=== PATIENT | male | born 1990 | race Caucasian/White ===

== ENCOUNTER 2017-06-11 05:22 | Emergency (ER) | payer SELFPAY ==
[2017-06-11] MEDS ORDERED: NORMAL SALINE 1000 ML 1,000 ML IV ONE ×3 (05:28→05:59)
[2017-06-11] MEDS ORDERED: ONDANSETRON HCL INJ/PF 4 MG/2 ML SDV IV ONE (05:37)
--- NOTE | 2017-06-11 05:40 | ER Document Report ---
ED General - General TRAVEL OUTSIDE OF THE [place] IN LAST 30 DAYS: No <PATEL ZAVALA - Last Filed: 06/11/17 07:50> <STEPHANIE JEAN-BAPTISTE - Last Filed: 06/11/17 08:53> - General Chief Complaint: High Blood Sugar Stated Complaint: BLOOD SUGAR PROBLEMS Time Seen by Provider: 06/11/17 05:29 Notes: Patient is a 27-year-old male type I diabetic that comes emergency department for chief complaint of elevated blood sugar readings and vomiting. He started vomiting 3 days ago. He has an insulin pump, he states he usually does really well, he states he still thinks his insulin pump is working but he has not checked. He denies fever, shortness of breath, he denies any specific abdominal pain, denies specific headache. Only other past medical history is asthma. (PAETL ZAVALA) - Related Data Allergies/Adverse Reactions: No Known Allergies Allergy (Verified 06/11/17 05:26) Past Medical History - General Information source: Patient - Social History Smoking Status: Never Smoker Frequency of alcohol use: None Drug Abuse: None Lives with: Family Family History: Reviewed & Not Pertinent Patient has suicidal ideation: No Patient has homicidal ideation: No Pulmonary Medical History: Reports: Hx Asthma Endocrine Medical History: Reports: Hx Diabetes Mellitus Type 1 Renal/ Medical History: Denies: Hx Peritoneal Dialysis Surgical Hx: Negative - Immunizations Immunizations up to date: Yes Hx Diphtheria, Pertussis, Tetanus Vaccination: Yes <PATEL ZAVALA - Last Filed: 06/11/17 07:50> Review of Systems - Review of Systems Constitutional: See HPI EENT: No symptoms reported Cardiovascular: No symptoms reported Respiratory: No symptoms reported Gastrointestinal: See HPI Genitourinary: No symptoms reported Male Genitourinary: No symptoms reported Musculoskeletal: No symptoms reported Skin: No symptoms reported Hematologic/Lymphatic: No symptoms reported Neurological/Psychological: No symptoms reported <PATEL ZAVALA - Last Filed: 06/11/17 07:50> Physical Exam - Vital signs Interpretation: Normal - General General appearance: Anxious In distress: Severe - HEENT Head: Normocephalic, Atraumatic Eyes: Normal Extraocular movements intact: Yes Eyelashes: Normal Pupils: PERRL Mouth/Lips: Normal Mucous membranes: Dry Pharynx: Normal Neck: Normal - Respiratory Respiratory status: No respiratory distress, Tachypnea Breath sounds: Normal Chest palpation: Normal - Cardiovascular Rhythm: Regular, Tachycardia Heart sounds: Normal auscultation, S1 appreciated, S2 appreciated Murmur: No - Abdominal Inspection: Normal Distension: No distension Bowel sounds: Normal Tenderness: Nontender. No: Tender, Guarding Organomegaly: No organomegaly - Back Back: Normal, Nontender - Extremities General upper extremity: Normal inspection, Nontender, Normal color, Normal ROM , Normal temperature General lower extremity: Normal inspection, Nontender, Normal color, Normal ROM , Normal temperature, Normal weight bearing. No: Erin's sign - Neurological Neuro grossly intact: Yes Cognition: Normal Orientation: AAOx4 [place] Coma Scale Eye Opening: Spontaneous [place] Coma Scale Verbal: Oriented [place] Coma Scale Motor: Obeys Commands [place] Coma Scale Total: 15 Speech: Normal Motor strength normal: LUE, RUE, LLE, RLE Sensory: Normal - Psychological Associated symptoms: Anxious - Skin Skin Temperature: Warm Skin Moisture: Dry Skin Color: Pale <PATEL ZAVALA - Last Filed: 06/11/17 07:50> - Vital signs Vitals: Temp Pulse Resp BP Pulse Ox 99.1 F 130 H 22 H 106/47 L 100 06/11/17 05:26 06/11/17 05:26 06/11/17 05:26 06/11/17 05:26 06/11/17 05:26 Course - Laboratory Result Diagrams: 06/11/17 05:42 06/11/17 05:42 <PATEL ZAVALA - Last Filed: 06/11/17 07:50> - Laboratory Result Diagrams: 06/11/17 05:42 06/11/17 07:47 <STEPHANIE JEAN-BAPTISTE - Last Filed: 06/11/17 08:53> - Re-evaluation Re-evalutation: 06/11/17 On initial evaluation patient is very ill-appearing, Kussmaul respirations, tachycardic, pale. 2 large-bore IVs immediately started. Patient found to be hypotensive. Started 2 normal saline boluses. Surprisingly he is not confused. He is critically ill at this time. EKG showing tachycardia with peaked T waves. Initial blood glucose reading of high. Beginning insulin drip. Giving calcium gluconate. Preparing bicarbonate drip for suspected severe acidosis. Reported to Dr. Aldana. 06/11/17 05:55 Blood pressure improving, heart rate improving, will continue to closely monitor. Patient in acute renal failure with potassium of 8.1. Creatinine of 3.42, never had a history of renal failure in the past. Spoke with Dr. Puga, hospitalist, concerned because of no nephrology coverage at this facility, inability to do dialysis this weekend, and no current ICU beds available. Recommends transfer. Discussed with Dr. Jean-Baptiste. He recommends albuterol in addition to other treatments to reduce potassium, he has placed repeat lab orders and chest x-ray. Blood pressure continues to improve. Patient's heart rate is improving. His coloration is improving. I placed a central line because of patient's critical status and to accommodate bicarbonate drip along with insulin, treatments, fluids. Dr. Jean-Baptiste evaluated patient at bedside. Family requests [place] for potential transfer. 06/11/17 07:10 Called placed to [facility]. 06/11/17 07:20 Spoke with [facility], they will accept the patient, accepting physician is Dr. Trammell. They request patient be taken by air. Patient and family member in agreement with this. 06/11/17 07:45 Patient reevaluated at bedside. Blood pressure still improving, he is still significantly tachycardic and pale but he is still mentating normally. T waves improving on EKG. Room assignment has been obtained, pending transport team. ( PATEL ZAVALA) 06/11/17 08:52 Patient's repeat laboratory studies do show improvement pH is now greater than 7 potassium is now 5.8 EKG shows improvement in T-wave I will decrease the patient's insulin drip to a rate of 0.1 U/kg continue with fluids currently transport is here to take the patient. Patient has stabilized and is currently stable for transport. (STEPHANIE JEAN-BAPTISTE) - Vital Signs Vital signs: Temp Pulse Resp BP Pulse Ox 99.1 F 130 H 23 H 111/59 L 100 06/11/17 05:26 06/11/17 05:26 06/11/17 08:31 06/11/17 08:31 06/11/17 08:31 - Laboratory Laboratory results interpreted by tx: 06/11/17 06/11/17 06/11/17 05:42 05:42 05:42 WBC 30.9 H* Hgb 17.5 H Hct 56.0 H MCV 104 H MCHC 31.2 L Seg Neuts % (Manual) 90 H Band Neutrophils % 1 L Lymphocytes % (Manual) 3 L Abs Neuts (Manual) 28.1 H Abs Monocytes (Manual) 1.5 H Abs Basophils (Manual) 0.3 H VBG pH 6.89 L* VBG pCO2 23.7 L VBG HCO3 4.4 L Sodium 127.4 L Potassium 8.1 H* Chloride 84 L Carbon Dioxide < 5 L* BUN 51 H Creatinine 3.42 H Est GFR ( Amer) 26 L Est GFR (Non-Af Amer) 22 L Glucose 1133 H* Magnesium Direct Bilirubin 0.6 H Alkaline Phosphatase 160 H Urine Protein Urine Glucose (UA) Urine Ketones Urine Blood 06/11/17 06/11/17 06/11/17 07:05 07:47 07:47 WBC Hgb Hct MCV MCHC Seg Neuts % (Manual) Band Neutrophils % Lymphocytes % (Manual) Abs Neuts (Manual) Abs Monocytes (Manual) Abs Basophils (Manual) VBG pH 7.04 L* VBG pCO2 18.1 L* VBG HCO3 4.8 L Sodium 134.3 L Potassium 5.8 H D Chloride Carbon Dioxide < 5 L* BUN 50 H Creatinine 2.48 H Est GFR ( Amer) 38 L Est GFR (Non-Af Amer) 31 L Glucose 766 H* Magnesium 2.7 H Direct Bilirubin Alkaline Phosphatase Urine Protein 30 H Urine Glucose (UA) >=500 H Urine Ketones 20 H Urine Blood SMALL H Procedures - Central Line Left Femoral Consent obtained: Yes Central line pre-insertion: Sterile PPE donned, Chloraprep applied Central line lumen type: Triple Anesthetic type: 1% Lidocaine mL's of anesthesia: 3 Ultrasound guided: Yes Line secured with sutures: Yes Central line post-insertion: Blood return from lumens, Biopatch applied, Sutured , Sterile dressing applied Number of attempts: 1 Complications: No <PATEL ZAVALA - Last Filed: 06/11/17 07:50> Critical Care Note - Critical Care Note Total time excluding time spent on procedures (mins): 60 - diabetic ketoacidosis , hyperkalemia, acute renal failure <PATEL ZAVALA - Last Filed: 06/11/17 07:50> <STEPHANIE JEAN-BAPTISTE - Last Filed: 06/11/17 08:53> - Critical Care Note Comments: Please allow 60 minutes of critical care time not including any procedures for treatment of critically ill patient with diabetic ketoacidosis, acute renal failure, hyperkalemia, treatments including insulin drip, IV fluids, bicarbonate bolus and drip, calcium carbonate, albuterol, multiple re- evaluations, consultation with hospitalist, discussion with family members, transfer to tertiary care center. (PATEL ZAVALA) Discharge <PATEL ZAVALA - Last Filed: 06/11/17 07:50> <STEPHANIE JEAN-BAPTISTE - Last Filed: 06/11/17 08:53> - Discharge Clinical Impression: Hyperkalemia, Hyponatremia Diabetic ketoacidosis Qualifiers: Diabetes mellitus type: type 1 Diabetes mellitus complication detail: without coma Qualified Code(s): E10.10 - Type 1 diabetes mellitus with ketoacidosis without coma Acute renal failure Qualifiers: Acute renal failure type: unspecified Qualified Code(s): N17.9 - Acute kidney failure, unspecified Leukocytosis Qualifiers: Leukocytosis type: unspecified Qualified Code(s): D72.829 - Elevated white blood cell count, unspecified Vomiting Qualifiers: Vomiting type: unspecified Vomiting Intractability: non-intractable Nausea presence: with nausea Qualified Code(s): R11.2 - Nausea with vomiting, unspecified Condition: Critical Disposition: [facility]
[2017-06-11] MEDS ORDERED: NORMAL SALINE 100 ML with INSULIN REGULAR, HUMAN 100 UNIT IV PRN ×2 (05:47)
[2017-06-11] MEDS ORDERED: SODIUM BICARBONATE 8.4% INJ 50 MEQ/50 ML DISP.SYRIN IV ONE (06:00)
[2017-06-11] MEDS ORDERED: DEXTROSE 5%-WATER 1000 ML 1,000 ML with SODIUM BICARBONATE 150 MEQ IV PRN ×2 (06:01)
[2017-06-11] MEDS ORDERED: INSULIN REG, HUMAN 100 UNIT/ML 3 ML VIAL (PYX) ONE (06:01)
[2017-06-11 06:03] LABS: HEMOGLOBIN 17.5 g/dL (13.5-17.0); HGB HCT DIFFERENCE -3.5; MEAN CORPUSCULAR HEMOGLOBIN 32.5 pg (27.0-33.4); MEAN CORPUSCULAR HGB CONC 31.2 g/dL (32.0-36.0); MEAN CORPUSCULAR VOLUME 104 fl (80-97); RED BLOOD COUNT 5.37 10^6/uL (4.35-5.55); RED CELL DISTRIBUTION WIDTH 13.6 % (11.5-14.0)
[2017-06-11 06:05] LABS: VENOUS BLOOD BASE EXCESS -28.1 mmol/L; VENOUS BLOOD HCO3 4.4 mmol/L (20-32); VENOUS BLOOD PCO2 23.7 mmHg (35-63)
[2017-06-11] MEDS ORDERED: CALCIUM GLUCONATE 1000 MG/10 ML INJ IV ONE ×2 (06:05→07:28)
[2017-06-11 06:16] LABS: ALANINE AMINOTRANSFERASE 22 U/L (21-72); ALKALINE PHOSPHATASE 160 U/L (38-126); ASPARTATE AMINO TRANSFERASE 19 U/L (17-59); BILIRUBIN,DIRECT 0.6 mg/dL (0.0-0.4); BLOOD UREA NITROGEN 51 mg/dL (7-20); CALCIUM 9.9 mg/dL (8.4-10.2); CHLORIDE 84 mmol/L (98-107); CREATININE RESULT 3.42 mg/dL (0.52-1.25); SODIUM 127.4 mmol/L (137-145); TOTAL PROTEIN 7.7 g/dL (6.3-8.2)
[2017-06-11 06:19] LABS: VENOUS BLOOD PH 6.89 (7.30-7.42)
[2017-06-11 06:20] LABS: POTASSIUM 8.1 mmol/L (3.6-5.0)
[2017-06-11 06:27] LABS: CARBON DIOXIDE < 5 mmol/L (22-30)
[2017-06-11 06:28] LABS: BAND NEUTROPHILS % (MANUAL) 1 % (3-5); BASOPHILS % (MANUAL) 1 % (0-2); EOSINOPHILS % (MANUAL) 0 % (0-6); LYMPHOCYTES % (MANUAL) 3 % (13-45); TOTAL CELLS COUNTED 100
[2017-06-11 06:29] LABS: GLUCOSE 1133 mg/dL (75-110); TOXIC GRANULATION SLIGHT
[2017-06-11 06:31] LABS: PLATELET CLUMPS PRESENT
[2017-06-11 06:34] LABS: WHITE BLOOD COUNT 30.9 10^3/uL (4.0-10.5)
[2017-06-11] MEDS ORDERED: ALBUTEROL SULFATE 0.083% NEB 2.5 MG/3 ML AMPUL NEB ONE (06:56)
[2017-06-11 07:25] LABS: APPEARANCE,URINE SLIGHTLY-CLOUDY; BILIRUBIN,URINE NEGATIVE (NEGATIVE); GLUCOSE, URINE >=500 mg/dL (NEGATIVE); KETONES,URINE 20 mg/dL (NEGATIVE); LEUKOCYTE ESTERASE,URINE NEGATIVE (NEGATIVE); NITRITE,URINE NEGATIVE (NEGATIVE); PROTEIN,URINE 30 mg/dL (NEGATIVE); URINE SPECIFIC GRAVITY 1.014; UROBILINOGEN,URINE NEGATIVE mg/dL (<2.0)
[2017-06-11] MEDS ORDERED: NORMAL SALINE IV PRN ×2 (07:30)
[2017-06-11] MEDS ORDERED: SODIUM BICARBONATE IV PRN ×2 (07:30)
--- NOTE | 2017-06-11 07:38 | RADIOLOGY REPORT (SQ) ---
EXAM DESCRIPTION: CHEST SINGLE VIEW COMPLETED DATE/TIME: 06/11/2017 7:31 am REASON FOR STUDY: dka elevated wbc COMPARISON: None. EXAM PARAMETERS: NUMBER OF VIEWS: One view. TECHNIQUE: Single frontal radiographic view of the chest acquired. RADIATION DOSE: NA LIMITATIONS: None. FINDINGS: LUNGS AND PLEURA: No opacities, masses or pneumothorax. No pleural effusion. MEDIASTINUM AND HILAR STRUCTURES: No masses. Contour normal. HEART AND VASCULAR STRUCTURES: Heart normal in size. Normal vasculature. BONES: No acute findings. HARDWARE: None in the chest. OTHER: No other significant finding. IMPRESSION: NO ACUTE RADIOGRAPHIC FINDING IN THE CHEST. TECHNICAL DOCUMENTATION: JOB ID: [id number]
[2017-06-11 07:58] LABS: VENOUS BLOOD HCO3 4.8 mmol/L (20-32)
[2017-06-11 08:04] LABS: VENOUS BLOOD PCO2 18.1 mmHg (35-63); VENOUS BLOOD PH 7.04 (7.30-7.42)
[2017-06-11 08:10] LABS: BLOOD UREA NITROGEN 50 mg/dL (7-20); CALCIUM 8.9 mg/dL (8.4-10.2); CREATININE RESULT 2.48 mg/dL (0.52-1.25); MAGNESIUM 2.7 mg/dL (1.6-2.3)
--- NOTE | 2017-06-11 08:15 | EKG REPORT ---
SEVERITY:- OTHERWISE NORMAL ECG - SINUS TACHYCARDIA : Confirmed by: Cesario Ching MD 11-Jun-2017 08:14:40
--- NOTE | 2017-06-11 08:16 | EKG REPORT ---
SEVERITY:- ABNORMAL ECG - SINUS TACHYCARDIA FIRST DEGREE AV BLOCK RIGHT BUNDLE BRANCH BLOCK CONSIDER HYPERKALEMIA : Confirmed by: Cesario Ching MD 11-Jun-2017 08:16:09
[2017-06-11 08:21] LABS: CHLORIDE 100 mmol/L (98-107); SODIUM 134.3 mmol/L (137-145)
[2017-06-11 08:28] LABS: GLUCOSE 766 mg/dL (75-110); POTASSIUM 5.8 mmol/L (3.6-5.0)
[2017-06-11 08:29] LABS: CARBON DIOXIDE < 5 mmol/L (22-30)
[2017-06-11 08:39] VITALS: BP 111/59
[2017-06-12 10:46] LABS: PATH REVIEW PATHOLOGIST REVIEWED
== END 2017-06-11 09:01 | disposition short-term general hospital (02) ==
LOC: ER 05:22
PROC: 06HN33Z Insertion of Infusion Device into Left Femoral Vein, Percutaneous Approach (ICD-10-PCS; principal; 2017-06-11)
DX: E87.5 Hyperkalemia (principal); E87.1 Hypo-osmolality and hyponatremia; E10.10 Type 1 diabetes mellitus with ketoacidosis without coma; N17.9 Acute kidney failure, unspecified; D72.829 Elevated white blood cell count, unspecified; R11.2 Nausea with vomiting, unspecified
CPT/HCPCS: 93005; 96376; 94640; 99285; 96365; 36415; 82962; 83735; 85025; 80048; 80053; 81001; 82803; 71010; 93010; 36556; C1751; J0610; J3490; J2405; J7030

== ENCOUNTER 2017-08-31 06:49 | Emergency (ER) | payer OTHER ==
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
[2017-08-31] MEDS ORDERED: LIDOCAINE 1% INJ-PF (10 MG/ML) 30 ML SDV INJ ONE (07:25)
[2017-08-31 07:35] LABS: ABSOLUTE BASOPHILS # (AUTO) 0.1 10^3/uL (0.0-0.2); ABSOLUTE EOSINOPHILS # (AUTO) 0.3 10^3/uL (0.0-0.6); ABSOLUTE LYMPHOCYTES (AUTO) 3.2 10^3/uL (0.5-4.7); ABSOLUTE MONOCYTES (AUTO) 0.4 10^3/uL (0.1-1.4); ABSOLUTE NEUT (AUTO) 3.2 10^3/uL (1.7-8.2); BASOPHILS % (AUTO) 0.7 % (0-2); EOSINOPHILS % (AUTO) 4.4 % (0-6); HEMATOCRIT 47.3 % (37.9-51.0); HEMOGLOBIN 16.8 g/dL (13.5-17.0); HGB HCT DIFFERENCE 3.1; LYMPHOCYTES % (AUTO) 44.8 % (13-45); MEAN CORPUSCULAR HEMOGLOBIN 32.2 pg (27.0-33.4); MEAN CORPUSCULAR HGB CONC 35.5 g/dL (32.0-36.0); MEAN CORPUSCULAR VOLUME 91 fl (80-97); MONOCYTES % (AUTO) 5.2 % (3-13); RED BLOOD COUNT 5.22 10^6/uL (4.35-5.55); RED CELL DISTRIBUTION WIDTH 12.5 % (11.5-14.0); SEGMENTED NEUTROPHILS % (AUTO) 44.9 % (42-78); WHITE BLOOD COUNT 7.1 10^3/uL (4.0-10.5)
[2017-08-31 07:57] LABS: ALANINE AMINOTRANSFERASE 41 U/L (21-72); ALBUMIN 4.3 g/dL (3.5-5.0); ALCOHOL 197 mg/dL (NONE DETECTED); ALKALINE PHOSPHATASE 106 U/L (38-126); ANION GAP 17 (5-19); ASPARTATE AMINO TRANSFERASE 27 U/L (17-59); BILIRUBIN,DIRECT 0.2 mg/dL (0.0-0.4); BILIRUBIN,TOTAL 0.5 mg/dL (0.2-1.3); BLOOD UREA NITROGEN 13 mg/dL (7-20); CALCIUM 9.3 mg/dL (8.4-10.2); CARBON DIOXIDE 22 mmol/L (22-30); CHLORIDE 105 mmol/L (98-107); GLUCOSE 143 mg/dL (75-110); POTASSIUM 3.7 mmol/L (3.6-5.0); SODIUM 144.2 mmol/L (137-145); TOTAL PROTEIN 7.1 g/dL (6.3-8.2)
[2017-08-31] MEDS ORDERED: ACETAMINOPHEN 325 MG TABLET PO ONE (08:16)
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
[2017-08-31 10:01] VITALS: BP 119/83
== END 2017-08-31 10:02 | disposition home or self-care (01) ==
LOC: ER 06:49
DX: S01.112A Laceration without foreign body of left eyelid and periocular area, initial encounter (principal); S60.511A Abrasion of right hand, initial encounter; S70.311A Abrasion, right thigh, initial encounter; S80.811A Abrasion, right lower leg, initial encounter; M25.561 Pain in right knee; V23.4XXA Motorcycle driver injured in collision with car, pick-up truck or van in traffic accident, initial encounter; E11.9 Type 2 diabetes mellitus without complications; J45.909 Unspecified asthma, uncomplicated
CPT/HCPCS: 99284; 36415; 80307; 85025; 80053; 73130; 73564; 70450; 72125; 12013; J3490

== ENCOUNTER 2017-09-08 18:29 | Emergency (ER) | payer OTHER ==
[2017-09-08 18:33] VITALS: BP 114/73
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
== END 2017-09-08 19:46 | disposition home or self-care (01) ==
LOC: ER 18:29
DX: Z48.02 Encounter for removal of sutures (principal)

== ENCOUNTER 2018-09-07 23:45 | Emergency (ER) | payer OTHER ==
[2018-09-08] MEDS ORDERED: IPRATROPIUM/ALBUTEROL 0.5-2.5 MG/3 ML AMPUL NEB ONE (00:18)
--- NOTE | 2018-09-08 00:22 | ER Document Report ---
ED Medical Screen (RME) - General Chief Complaint: Shortness Of Breath Stated Complaint: DIFFICULTY BREATHING Time Seen by Provider: 09/08/18 00:18 TRAVEL OUTSIDE OF THE [place] IN LAST 30 DAYS: No - HPI Notes: 09/08/18 00:19 Patient is a 28-year-old male with a history of asthma and insulin-dependent diabetes with an insulin pump who presents to the ED complaining of an asthma exacerbation that started today. Patient states that when he woke up this morning he noticed that he was starting to wheeze and have a dry cough associated. Patient states that he does not have an inhaler, but believes that if he had he would not have needed to come to the emergency department. Patient states that he has had asthma flareups like this in the past. He does reveal that he sweats often and very easily and usually his face becomes red when he is coughing which is not uncommon for him. No other concerns or complaints. Denies any headache, fever, neck pain, changes in vision/speech/mentation/hearing, URI, sore throat, chest pain, palpitations, syncope, abdominal pain, nausea/vomiting/diarrhea, urinary retention, dysuria, hematuria, or rash. I have treated and performed a rapid initial assessment of this patient. A comprehensive ED assessment and evaluation of the patient, analysis of test results and completion of medical decision making process will be conducted by additional ED providers. Pivot nurse notified to allow patient to have a room sooner to start his breathing treatment. PHYSICAL EXAMINATION: GENERAL: Well-appearing, well-nourished and in no acute distress. A&Ox4. Answers questions appropriately. He does appear to be a bit sweaty and somewhat flushed in the face. No pursed lip breathing. LUNGS: expiratory wheezing b/l, L>R. No retractions. HEART: Regular rate and rhythm without murmurs, rubs, gallops. Extremities: No cyanosis, clubbing, or edema b/l. NEUROLOGICAL: Normal speech, normal gait. PSYCH: Normal mood, normal affect. - Related Data Allergies/Adverse Reactions: No Known Allergies Allergy (Verified 09/08/17 18:29) Past Medical History Pulmonary Medical History: Reports: Hx Asthma Endocrine Medical History: Reports: Hx Diabetes Mellitus Type 1 Renal/ Medical History: Denies: Hx Peritoneal Dialysis Past Surgical History: Reports: Hx Appendectomy - Immunizations Immunizations up to date: Yes Hx Diphtheria, Pertussis, Tetanus Vaccination: Yes Physical Exam - Vital signs Vitals: Temp Pulse Resp BP Pulse Ox 97.9 F 117 H 30 H 123/91 H 117 H 09/07/18 23:46 09/07/18 23:46 09/07/18 23:46 09/07/18 23:46 09/07/18 23:46 Course - Vital Signs Vital signs: Temp Pulse Resp BP Pulse Ox 97.9 F 117 H 30 H 123/91 H 97 09/07/18 23:46 09/07/18 23:46 09/07/18 23:46 09/07/18 23:46 09/08/18 00:02 - Laboratory Laboratory results interpreted by me: 09/07/18 23:57 POC Glucose 123 H
--- NOTE | 2018-09-08 00:42 | ER Document Report ---
ED General - General Chief Complaint: Shortness Of Breath Stated Complaint: DIFFICULTY BREATHING Time Seen by Provider: 09/08/18 00:18 Notes: Patient is a 28-year-old male who presents to the emergency department with a chief complaint of having an asthma attack. He has a history of asthma and insulin dependent diabetes. His symptoms started today. He states he woke up this morning and felt it was hard to breathe. He does not have an inhaler at home. He denies any fever, chills, runny nose, ear pain, or any other symptoms at this time. He states that if he had an inhaler, he does not think he would have been in the emergency department tonight. His blood sugar upon arrival to the emergency department was 123. He has an insulin pump. TRAVEL OUTSIDE OF THE [place] IN LAST 30 DAYS: No - Related Data Allergies/Adverse Reactions: No Known Allergies Allergy (Verified 09/08/17 18:29) Past Medical History - Social History Smoking Status: Never Smoker Frequency of alcohol use: None Drug Abuse: None Lives with: Alone Family History: Reviewed & Not Pertinent Pulmonary Medical History: Reports: Hx Asthma Endocrine Medical History: Reports: Hx Diabetes Mellitus Type 1 Renal/ Medical History: Denies: Hx Peritoneal Dialysis Past Surgical History: Reports: Hx Appendectomy - Immunizations Immunizations up to date: Yes Hx Diphtheria, Pertussis, Tetanus Vaccination: Yes Review of Systems - Review of Systems Notes: REVIEW OF SYSTEMS: CONSTITUTIONAL : Denies recent illness. Denies recent unintentional weight loss. Denies fever, chills, or sweats. EENT: Denies eye, ear, throat, or mouth pain, discharge, or symptoms. Denies nasal or sinus congestion. CARDIOVASCULAR: Denies chest pain. RESPIRATORY: See HPI GASTROINTESTINAL: Denies nausea, vomiting, and diarrhea. Denies abdominal pain. Denies constipation. GENITOURINARY: Denies difficulty urinating, burning, blood in urine, urgency or frequency. MUSCULOSKELETAL: Denies neck and back pain. Denies joint pain or swelling. SKIN: Denies rash, itchiness, or lesions HEMATOLOGIC : Denies easy bruising or bleeding. LYMPHATIC: Denies swollen, painful, enlarged glands. NEUROLOGICAL: Denies no numbness or tingling denies weakness. Denies headache. Denies altered mental status. Denies alteration in speech. PSYCHIATRIC: Denies stress, anxiety, alteration in sleep patterns, or depression. All other systems reviewed and negative. Physical Exam - Vital signs Vitals: Temp Pulse Resp BP Pulse Ox 97.9 F 117 H 30 H 123/91 H 117 H 09/07/18 23:46 09/07/18 23:46 09/07/18 23:46 09/07/18 23:46 09/07/18 23:46 - Notes Notes: PHYSICAL EXAMINATION: GENERAL: Appears well, healthy, well-nourished, no acute distress. HEAD: Normocephalic, atraumatic. EYES: PERRL, conjunctiva normal, all extraocular movements intact, sclera nonicteric ENT: Moist mucous membranes. NECK: Supple, no noticeable swelling, redness, rash. Normal range of motion. LUNGS: Bilateral expiratory wheezes noted. CARDIOVASCULAR: S1-S2, regular rate, regular rhythm. Radial pulses 2+, normal. ABDOMEN: Normoactive bowel sounds. Soft, nontender, no guarding, no rebound tenderness, and no masses palpated. EXTREMITIES: Normal strength and range of motion, no pitting or edema. No c yanosis. NEUROLOGICAL: Moves all extremities upon command. Strength 5/5 in all extremities. PSYCH: Normal mood, normal affect. SKIN: Warm, moist. No rash, lesions, ulcerations noted. Normal skin turgor. Course - Re-evaluation Re-evalutation: Differential diagnosis includes asthma exacerbation, pulmonary emboli, pneumonia, spontaneous pneumothorax, or diabetic ketoacidosis.. 09/08/18 01:15 Patient's lung sounds have improved greatly. He now has clear breath sounds. He will be given an albuterol inhaler with a spacer for home. He is to follow- up with his primary care provider. Verbal discharge instructions were given to the patient. They verbalized understanding. They are stable for discharge. I do not suspect the patient has a pulmonary emboli because he had clear breath sounds after his breathing treatment and denied difficulty breathing after his breathing treatment. I do not suspect pneumonia because he did not have a fever nor did he complain of chest pain with his difficulty breathing. I also do not suspect a spontaneous pneumothorax because his history is consistent with an asthma exacerbation. I do not suspect he is in diabetic ketoacidosis because his blood sugar is at 123 - Vital Signs Vital signs: Temp Pulse Resp BP Pulse Ox 97.5 F 101 H 19 145/89 H 98 12/22/18 01:35 09/08/18 01:35 09/08/18 01:35 09/08/18 01:35 09/08/18 01:35 - Laboratory Laboratory results interpreted by me: 09/07/18 23:57 POC Glucose 123 H Discharge - Discharge Clinical Impression: Asthma exacerbation Qualifiers: Asthma severity: moderate Asthma persistence: unspecified Qualified Code(s): J45.901 - Unspecified asthma with (acute) exacerbation Condition: Stable Disposition: HOME, SELF-CARE Additional Instructions: You were seen in the emergency department today for an asthma exacerbation. You were given a breathing treatment for your asthma. You have been given an inhaler to go home with. You have also been provided with a spacer for your inhaler. You may take 1-2 puffs of your inhaler every 4 hours as needed for wheezing or shortness of breath. These follow-up with your primary care provider in 1 week. Please look into starting inhaled steroids for long-term asthma control after your insurance is in place. If you develop difficulty breathing, fever greater than 100.4 F, or lethargic, or have any symptoms that are worrisome to you, please return to the emergency department. Referrals: ONIEL BLUNT MD [ACTIVE STAFF] - Follow up in 1 week
[2018-09-08] MEDS ORDERED: ALBUTEROL SULFATE HFA (90 MCG/PUFF) 8 GM MDI (1 MDI/ER DISP) IH PRN (01:18)
[2018-09-08 01:36] VITALS: BP 145/89
== END 2018-09-08 01:36 | disposition home or self-care (01) ==
LOC: ER 23:45
DX: J45.901 Unspecified asthma with (acute) exacerbation (principal); R06.02 Shortness of breath; E10.9 Type 1 diabetes mellitus without complications; Z79.4 Long term (current) use of insulin
CPT/HCPCS: 94640; 99285; 82962; J3490; J7620

== ENCOUNTER 2018-12-08 09:50 | Emergency (ER) | payer SELFPAY ==
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
[2018-12-08 11:54] VITALS: BP 123/80
== END 2018-12-08 11:58 | disposition home or self-care (01) ==
LOC: ER 09:50
DX: S01.311A Laceration without foreign body of right ear, initial encounter (principal); Y04.0XXA Assault by unarmed brawl or fight, initial encounter; E10.9 Type 1 diabetes mellitus without complications; E03.9 Hypothyroidism, unspecified
CPT/HCPCS: 99282